=== PATIENT | female | born 1985 | race Caucasian/White ===

== ENCOUNTER 2018-04-25 18:01 | Emergency (ER) | payer OTHER ==
[~2018-04-25] VITALS: Ht 165.1 cm; Wt 54.1 kg
[2018-04-25] MEDS ORDERED: LORazepam 1 MG TABLET PO ONE (19:30)
[2018-04-25 19:57] VITALS: BP 117/85
== END 2018-04-25 19:59 | disposition home or self-care (01) ==
LOC: EMS 18:02
DX: F41.9 Anxiety disorder, unspecified (principal); F32.9 Major depressive disorder, single episode, unspecified; F17.210 Nicotine dependence, cigarettes, uncomplicated
CPT/HCPCS: 99284